=== PATIENT | male | born 1975 ===

== ENCOUNTER 2016-05-30 04:47 | Inpatient (IN) | payer SELFPAY ==
[2016-05-30] MEDS ORDERED: NOREPINEPHRINE/NS 4 MG/500 ML BAG IV ONE (04:51)
[2016-05-30] MEDS ORDERED: TDAP ADULT 0.5 ML INJ (BOOSTRIX) IM ONE (04:51)
[2016-05-30] MEDS ORDERED: NOREPINEPHRINE BITARTRATE 4 MG in NS 500 ML IV ONE (05:03)
[2016-05-30] MEDS ORDERED: NS 3,000 ML IV ONE (05:12)
[2016-05-30] MEDS ORDERED: fentaNYL 100 MCG/2 ML INJ IVP ONE (05:14)
[2016-05-30] MEDS ORDERED: MIDAZOLAM 2 MG/2 ML VIAL ONE ×2 (05:14→05:23)
[2016-05-30] MEDS ORDERED: MIDAZOLAM 10 MG/2 ML VIAL IVP ONE (05:15)
[2016-05-30 05:19] LABS: ABSOLUTE NRBC COUNT 0.06 10^3/uL (0-0.01); ADD DIFF? YES; ADD MORPH? NO; ADD SCAN? NO; ATYPICAL LYMPHOCYTE FLAG 10 (0-99); FRAGMENT RBC FLAG 0 (0-99); HEMATOCRIT 41.9 % (40.0-51.0); HEMOGLOBIN 14.1 g/dL (13.7-17.5); LEFT SHIFT FLG 40 (0-99); LIPEMIA HEMOLYSIS FLAG 80 (0-99); MEAN CELL HEMOGLOBIN 31.6 pg (27.9-34.1); MEAN CELL HEMOGLOBIN CONCENTR. 33.7 g/dL (32.4-36.7); MEAN CELL VOLUME 93.9 fL (81.5-99.8); MEAN PLATELET VOLUME 9.2 fL (8.7-11.7); NRBC-AUTO% 0.7 % (0.0-0.2); PLATELET CLUMPS FLAG 0 (0-99); PLATELET COUNT 206 10^3/uL (150-400); RED BLOOD CELL COUNT 4.46 10^6/uL (4.40-6.38); RED CELL DISTRIBUTION WIDTH 12.9 % (11.5-15.2)
[2016-05-30] MEDS ORDERED: PROPOFOL 200 MG/20 ML VIAL ONE (05:21)
[2016-05-30] MEDS ORDERED: LIDOCAINE 1% 30 ML SDV ONE (05:22)
[2016-05-30] MEDS ORDERED: fentaNYL 100 MCG/2 ML INJ ONE (05:22)
[2016-05-30] MEDS ORDERED: IOPAMIDOL (ISOVUE-370) 150 ML BTL IV ONE (05:23)
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
[2016-05-30] MEDS ORDERED: SODIUM BICARBONATE IV SCH (05:30)
[2016-05-30] MEDS ORDERED: 1/2 NS IV SCH (05:30)
[2016-05-30 05:31] LABS: POTASSIUM 3.5 mEq/L (3.5-5.2); SPECIMEN HEMOLYSIS 148
[2016-05-30 05:32] LABS: ALANINE AMINOTRANSFERASE 52 IU/L (21-72); ALBUMIN 3.1 g/dL (3.5-5.0); ALKALINE PHOSPHATASE 57 IU/L (38-126); ANION GAP 23 mEq/L (8-16); ASPARTATE AMINOTRANSFERASE 73 IU/L (17-59); BILIRUBIN,TOTAL 0.9 mg/dL (0.1-1.4); BILIRUBIN-CONJUGATED 0.9 mg/dL (0.0-0.5); CALCIUM 7.7 mg/dL (8.5-10.4); CARBON DIOXIDE 14 mEq/l (22-31); CHLORIDE 107 mEq/L (97-110); ETHANOL SERUM 106 mg/dL (0-10); GLOMERULAR FILTRATION RATE > 60; GLUCOSE 254 mg/dL (70-100); SODIUM 144 mEq/L (134-144); TOTAL PROTEIN 5.6 g/dL (6.3-8.2)
[2016-05-30] MEDS ORDERED: PROPOFOL 200 MG/20 ML VIAL IVP ONE ×2 (05:33→05:34)
[2016-05-30] MEDS ORDERED: PROPOFOL/EMULSION 1,000 MG/100 ML BOTTLE IV ONE (05:36)
[2016-05-30 05:43] LABS: BASE EXCESS -21.2 mEq/L (-2.5-2.5); BICARBONATE 10 mEq/L (22-26); MEASURED OXYGEN SATURATION 98 % (92-95); PCO2 44 mmHg (34-38); PO2 399 mmHg (65-75); TCO2 12 mEq/L (23-27)
[2016-05-30 05:43] LABS: TROPONIN I 0.018 ng/mL (0-0.034)
[2016-05-30] MEDS ORDERED: [UNRECOGNIZED DRUG - OTHER] IV ONE (05:45)
[2016-05-30 05:47] LABS: O2 CONCENTRATIION 100 % (0-100); P/F RATIO 399 RATIO; PATIENT RATE 18; SIMV YES
[2016-05-30 05:48] LABS: PIP 18; PRESSURE SUPPORT 7
[2016-05-30 05:53] LABS: INR 1.33 (0.83-1.16); PROTIME(PATIENT) 16.5 SEC (12.0-15.0)
[2016-05-30 05:54] LABS: APTT 39.7 SEC (23.0-38.0)
[2016-05-30] MEDS ORDERED: BIVALIRUDIN 250 MG/5 ML VIAL IV ONE (06:00)
[2016-05-30] MEDS ORDERED: PROPOFOL/EMULSION 100 ML IV SCH (06:00)
[2016-05-30] MEDS ORDERED: HEPARIN 10,000 UNIT/10 ML MDV ONE (06:00)
--- NOTE | 2016-05-30 06:03 | CPEKG ---
Heart Rate: 99 RR Interval: 606 QRSD Interval: 104 QT Interval: 376 QTC Interval: 483 QRS Blanco: 146 T Wave Blanco: -35 EKG Severity - ABNORMAL ECG - EKG Impression: ATRIAL FIBRILLATION EKG Impression: ST elevation MT with reciprocal changes Electronically Signed By: Fortino Manuel 30-May-2016 06:08:26
[2016-05-30 06:05] LABS: COLOR RED; LEUKOCYTE ESTERASE,URINE NEGATIVE (NEGATIVE); NITRITE,URINE NEGATIVE (NEGATIVE)
[2016-05-30 06:10] LABS: PLATELET ESTIMATE ADEQUATE (ADEQ)
[2016-05-30] MEDS ORDERED: NALOXONE HCL 0.4 MG/ML INJ IVP PRN (06:14)
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
[2016-05-30] MEDS ORDERED: fentanYL/NACL/100 ML BAG IV ONE (06:55)
[2016-05-30 07:00] LABS: BACTERIA 2+ /hpf (NONE SEEN); MUCUS TRACE /lpf (NONE-1+); RBC,URINE 15-25 /hpf (0-3)
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
[2016-05-30] MEDS ORDERED: ROCURONIUM 100 MG/10 ML VIAL ONE (07:07)
[2016-05-30] MEDS ORDERED: fentaNYL 100 MCG/2 ML INJ IVP PRN (07:24)
[2016-05-30] MEDS ORDERED: fentaNYL/NACL 100 ML IV SCH (07:24)
[2016-05-30] MEDS ORDERED: ROCURONIUM 100 MG/10 ML VIAL IV ONE (07:30)
[2016-05-30 07:31] LABS: BASE EXCESS -19.2 mEq/L (-2.5-2.5); BICARBONATE 12 mEq/L (22-26); MEASURED OXYGEN SATURATION 99 % (92-95); PCO2 37 mmHg (34-38); PO2 251 mmHg (65-75); TCO2 13 mEq/L (23-27)
[2016-05-30 07:34] LABS: SIMV YES
[2016-05-30 07:35] LABS: O2 CONCENTRATIION 100 % (0-100); P/F RATIO 251 RATIO; PATIENT RATE 22
[2016-05-30] MEDS: PROPOFOL/EMULSION 100 ML IV SCH ×2 (07:50→09:04)
[2016-05-30 07:55] VITALS: O2SAT 100
[2016-05-30] MEDS ORDERED: SODIUM BICARBONATE 50 MEQ/50 ML SYR ONE (07:57)
[2016-05-30] MEDS ORDERED: ALBUTEROL 3 ML DEYVIAL IH PRN (08:14)
[2016-05-30 08:17] LABS: ABSOLUTE IMMATURE GRANULOCYTES 0.14 10^3/uL (0.00-0.10); ADD DIFF? NO; ADD MORPH? NO; ADD SCAN? NO; ATYPICAL LYMPHOCYTE FLAG 0 (0-99); FRAGMENT RBC FLAG 0 (0-99); HEMATOCRIT 50.8 % (40.0-51.0); HEMOGLOBIN 17.5 g/dL (13.7-17.5); LEFT SHIFT FLG 40 (0-99); LIPEMIA HEMOLYSIS FLAG 90 (0-99); MEAN CELL HEMOGLOBIN 31.3 pg (27.9-34.1); MEAN CELL HEMOGLOBIN CONCENTR. 34.4 g/dL (32.4-36.7); MEAN CELL VOLUME 90.9 fL (81.5-99.8); MEAN PLATELET VOLUME 9.1 fL (8.7-11.7); PLATELET CLUMPS FLAG 0 (0-99); PLATELET COUNT 266 10^3/uL (150-400); RED BLOOD CELL COUNT 5.59 10^6/uL (4.40-6.38); RED CELL DISTRIBUTION WIDTH 13.2 % (11.5-15.2)
[2016-05-30] MEDS ORDERED: FAMOTIDINE 20 MG/NACL 50 ML IV SCH (09:00)
[2016-05-30] MEDS ORDERED: CHLORHEXIDINE GLUCONATE 15 ML UDL PO SCH (09:00)
[2016-05-30 09:10] LABS: BASE EXCESS -14.5 mEq/L (-2.5-2.5); BICARBONATE 12 mEq/L (22-26); MEASURED OXYGEN SATURATION 99 % (92-95); PCO2 31 mmHg (34-38); PO2 403 mmHg (65-75); TCO2 13 mEq/L (23-27)
[2016-05-30 09:15] LABS: ASSIST CONTROL YES; END TIDAL CO2 15; O2 CONCENTRATIION 100 % (0-100); P/F RATIO 403 RATIO
[2016-05-30 09:24] LABS: ANION GAP 14 mEq/L (8-16); CALCIUM 7.2 mg/dL (8.5-10.4); CARBON DIOXIDE 15 mEq/l (22-31); CHLORIDE 114 mEq/L (97-110); CREATININE 0.8 mg/dL (0.7-1.3); GLOMERULAR FILTRATION RATE > 60; GLUCOSE 169 mg/dL (70-100); POTASSIUM 4.8 mEq/L (3.5-5.2); SODIUM 143 mEq/L (134-144)
[2016-05-30 09:37] LABS: INR 1.23 (0.83-1.16); PROTIME(PATIENT) 15.5 SEC (12.0-15.0)
[2016-05-30] MEDS ORDERED: ACETYLCYSTEINE 20% IH/PO 30 ML VIAL IH SCH (10:00)
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
[2016-05-30 10:54] VITALS: RESP 30
[2016-05-30 10:56] VITALS: BP 105/80; PULSE 91; TEMP 93.4
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
== END 2016-05-30 09:47 | disposition short-term general hospital (02) | DRG 280 ==
LOC: MERGE 05:45 → F2N 06:40
PROVIDERS: ADMIT Surgery; ATTEND Surgery
PROC: B2151ZZ Fluoroscopy of Left Heart using Low Osmolar Contrast (ICD-10-PCS; principal; 2016-05-30)
PROC: B2111ZZ Fluoroscopy of Multiple Coronary Arteries using Low Osmolar Contrast (ICD-10-PCS; principal; 2016-05-30)
PROC: 0BH17EZ Insertion of Endotracheal Airway into Trachea, Via Natural or Artificial Opening (ICD-10-PCS; 2016-05-30)
DX: I21.3 ST elevation (STEMI) myocardial infarction of unspecified site (principal); J96.00 Acute respiratory failure, unspecified whether with hypoxia or hypercapnia; E87.2 Acidosis; T75.1XXA Unspecified effects of drowning and nonfatal submersion, initial encounter; I10 Essential (primary) hypertension; I95.9 Hypotension, unspecified; T58.8X1A Toxic effect of carbon monoxide from other source, accidental (unintentional), initial encounter; T22.251A Burn of second degree of right shoulder, initial encounter; T24.212A Burn of second degree of left thigh, initial encounter; I25.10 Atherosclerotic heart disease of native coronary artery without angina pectoris; Y92.012 Bathroom of single-family (private) house as the place of occurrence of the external cause
CPT/HCPCS: 80305; 96374; G0480; J0583; J1644; J2250; J2704; J3010; Q9967